=== PATIENT | female | born 1985 | race Caucasian/White ===

== ENCOUNTER 2024-07-30 07:03 | Inpatient (IN) | payer OTHER ==
[~2024-07-30] VITALS: Ht 170.2 cm; Wt 66.6 kg
[2024-07-30 08:44] LABS: BASOPHILS ABSOLUTE AUTO 0.03 K/mm3 (0.00-0.23); BASOPHILS PERCENT AUTO 0 % (0-2); EOSINOPHILS ABSOLUTE AUTO 0.21 K/mm3 (0.00-0.68); EOSINOPHILS PERCENT AUTO 3 % (0-6); Hematocrit 30.3 % (33.0-51.0); Hemoglobin 10.4 g/dL (11.5-16.0); IMMATURE GRAN ABSOLUTE AUTO 0.07 K/mm3 (0.00-0.10); IMMATURE GRAN PERCENT AUTO 1 % (0-1); LYMPHOCYTES ABSOLUTE AUTO 0.68 K/mm3 (0.84-5.20); LYMPHOCYTES PERCENT AUTO 9 % (21-46); MONOCYTES ABSOLUTE AUTO 0.58 K/mm3 (0.16-1.47); MONOCYTES PERCENT AUTO 7 % (4-13); Mean Corpuscular HGB 31.9 pg (26.0-34.0); Mean Corpuscular HGB Conc 34.3 g/dL (31.5-36.5); Mean Corpuscular Volume 93 fL (80-100); Mean Platelet Volume 10.9 fL (9.1-12.4); NEUTROPHILS ABSOLUTE AUTO 6.31 K/mm3 (1.96-9.15); NEUTROPHILS PERCENT AUTO 80 % (41-73); Platelet Count 158 K/mm3 (150-400); RDW Coefficient Variation 12.6 % (11.7-14.2); RDW Standard Deviation 43.5 fL (35.1-46.3); Red Blood Cell Count 3.26 M/mm3 (3.80-5.20); White Blood Cell Count 7.88 K/mm3 (4.00-11.30)
[2024-07-30 09:07] LABS: Albumin, Blood 2.7 g/dL (3.4-5.0); Albumin/Globulin Ratio 0.7 (0.8-1.8); Bilirubin, Total 0.7 mg/dL (0.1-1.0); Bun/Creatinine Ratio 12.5 (12.0-20.0); Creatinine, Blood 0.56 mg/dL (0.40-1.00); Potassium, Blood 4.8 mmol/L (3.5-5.5); Total Protein, Blood 6.7 g/dL (6.4-8.2)
[2024-07-30] MEDS ORDERED: LORazepam 2 MG/ML 1ML Injection IV ONE (12:35)
[2024-07-30] MEDS ORDERED: Morphine Sulfate 4 MG/1 ML Injection IV ONE ×2 (12:35→16:45)
[2024-07-30] MEDS ORDERED: Piperacillin/Tazobactam Sod 3.375 GM in NS 100 ML IV ONE (12:35)
[2024-07-30] MEDS ORDERED: Ondansetron 4 MG TAB PO PRN (13:50)
[2024-07-30] MEDS ORDERED: FLU VACC TS2024-25(6MOS UP)/PF 45 MCG/0.5 ML SYRINGE IM ONE (13:50)
[2024-07-30] MEDS ORDERED: PREG200 PO (15:20)
[2024-07-30] MEDS ORDERED: TRAZ150T57 PO (15:21)
[2024-07-30] MEDS ORDERED: DESVENLAFAXINE50 M3 PO (15:21)
[2024-07-30] MEDS ORDERED: KLONOPIN0.5 M9 PO (15:22)
[2024-07-30] MEDS ORDERED: CYCL10 PO (15:22)
[2024-07-30] MEDS ORDERED: DiphenhydrAMINE HCl 50 MG/ML 1ML Vial IV ONE (16:45)
[2024-07-30] MEDS ORDERED: DESV50 PO (16:57)
[2024-07-30 18:28] VITALS: BP 109/75
[2024-07-30] MEDS ORDERED: NS 250 ML IV PRN (18:45)
[2024-07-30] MEDS ORDERED: Piperacillin/Tazobactam Sod 3.375 GM in NS 100 ML IV SCH (19:00)
[2024-07-30 20:09] VITALS: BP 103/71
[2024-07-30] MEDS ORDERED: FentaNYL Citrate 50 MCG/ML 2 ML Injection IV PRN (21:15)
[2024-07-30] MEDS ORDERED: Pregabalin 50 MG Capsule PO SCH (22:40)
--- NOTE | 2024-07-31 04:28 | NUR ---
SHIFT SUMMARY ADMITTED FOR POST OP INFECTION OF STOMA REVISION. FULL CODE. AWAITING A BED AT [facility], WHO PERFORMED HER RECENT SURGERIES. 07/21/2024 PARASTOMAL HERNIA REPAIR W/STOMA REVISION WAS THE LATEST. MEANWHILE WE ARE GIVING IV ANTIB RX AND PAIN CONTROL RX. SHE IS A&O X4, INDEPENDENT, ON RA. REGULAR DIET. SHE IS WANTING TO RESTART HER HOME MEDS IF POSSIBLE, SO I WILL REPORT THIS REQUEST TO THE DAY RN. I DID GET HER LYRICA ORDERED PER PT REQUEST. PAIN RX GIVEN THIS SHIFT. SHE HAS A HX OF SEVERE ANXIETY.
[2024-07-31 05:43] VITALS: BP 94/61
[2024-07-31 06:10] LABS: BASOPHILS ABSOLUTE AUTO 0.02 K/mm3 (0.00-0.23); BASOPHILS PERCENT AUTO 0 % (0-2); EOSINOPHILS ABSOLUTE AUTO 0.24 K/mm3 (0.00-0.68); EOSINOPHILS PERCENT AUTO 3 % (0-6); Hematocrit 27.8 % (33.0-51.0); Hemoglobin 9.4 g/dL (11.5-16.0); IMMATURE GRAN ABSOLUTE AUTO 0.03 K/mm3 (0.00-0.10); IMMATURE GRAN PERCENT AUTO 0 % (0-1); LYMPHOCYTES ABSOLUTE AUTO 1.01 K/mm3 (0.84-5.20); LYMPHOCYTES PERCENT AUTO 14 % (21-46); MONOCYTES PERCENT AUTO 9 % (4-13); Mean Corpuscular HGB 31.9 pg (26.0-34.0); Mean Corpuscular HGB Conc 33.8 g/dL (31.5-36.5); Mean Corpuscular Volume 94 fL (80-100); Mean Platelet Volume 10.8 fL (9.1-12.4); NEUTROPHILS ABSOLUTE AUTO 5.11 K/mm3 (1.96-9.15); NEUTROPHILS PERCENT AUTO 73 % (41-73); Platelet Count 163 K/mm3 (150-400); RDW Coefficient Variation 12.4 % (11.7-14.2); Red Blood Cell Count 2.95 M/mm3 (3.80-5.20); White Blood Cell Count 7.01 K/mm3 (4.00-11.30)
[2024-07-31 06:56] LABS: Albumin, Blood 2.5 g/dL (3.4-5.0); Albumin/Globulin Ratio 0.7 (0.8-1.8); Bilirubin, Total 0.5 mg/dL (0.1-1.0); Bun/Creatinine Ratio 9.7 (12.0-20.0); Calcium, Blood 8.8 mg/dL (8.5-10.1); Creatinine, Blood 0.62 mg/dL (0.40-1.00); Globulin, Blood 3.4 g/dL (2.2-4.0); Magnesium, Blood 2.4 mg/dL (1.6-2.4); Potassium, Blood 3.9 mmol/L (3.5-5.5); Total Protein, Blood 5.9 g/dL (6.4-8.2)
[2024-07-31 07:27] VITALS: BP 100/70
[2024-07-31] MEDS ORDERED: Enoxaparin 40 MG/0.4 ML SYR SC SCH (09:00)
--- NOTE | 2024-07-31 10:38 | NUR ---
PT INFORMED THIS RN APPROXIMATELY 30 MINS AGO, PT SNEEZE AND IMMEDIATELY FELT A "SHARP, TEARING" SENSATION AROUND OSTOMY SITE. THIS RN ASSESSED OSTOMY AND DID NOT NOTICE ANY WORSENING CONDITION. PT WAS PROVIDED A PILLOW TO USE A BRACE AGAINST ABDOMEN WHILE SNEEZING OR COUGHING, REPORTED FEELING "A BIT BETTER WHEN COUGHING". MD INFORMED AND INSTRUCTED THIS RN TO CONTINUE TO ASSESS THE SITUATION AND INFORM OF ANY WORSENING CONDITION. WILL CONTINUE TO MONITOR.
[2024-07-31] MEDS ORDERED: Ketorolac Tromethamine 30mg Vial IV PRN (10:55)
--- NOTE | 2024-07-31 13:29 | NUR ---
TALKED TO RIAZ AMAYA FROM [facility] OVER PHONE AND GAVE UPDATES ABOUT PT.
[2024-07-31 15:30] VITALS: BP 109/82
--- NOTE | 2024-07-31 15:47 | NUR ---
CALLED TO GIVE REPORT ON RN AT [facility], THEY WILL CALL BACK FOR REPORT.
--- NOTE | 2024-07-31 17:57 | NUR ---
SHIFT SUMMARY PT AOX4, COOPERATIVE, ABLE TO MAKE NEEDS KNOWN. PT NO LONGER GOING TO [facility], WILL BE STAYING AT [facility] FOR IV ABX. AMBULATES IND TO BATHROOM. STILL HAVING TROUBLE WITH ILIOSTOMY LEAKING STOOL. PT EXPRESSES PAIN 7/10 PAIN LEVEL, MEDICATING WITH FENTANYL AND TORADOL IV PER EMAR. TOLERATING PO AND IV MEDICATIONS APPROPRIATELY. BED IN LOWEST POSITION, CALL LIGHT WITHIN REACH.
[2024-07-31 20:21] VITALS: BP 114/83
[2024-07-31] MEDS ORDERED: ClonazePAM 0.5 MG Tab PO SCH (21:00)
--- NOTE | 2024-08-01 04:58 | NUR ---
SHIFT SUMMARY. PATIENT IS A&OX4. PATIENT IS INDEPENDENT IN THE ROOM. PATIENT C/O 7/10 ABDOMINAL PAIN-MEDICATED PER ORDERS WITH TORADOL AND FENTANYL. PATIENT IS PLEASANT AND COOPERATIVE WITH CARE. PLAN IS FOR PATIENT TO CONTINUE ABX AND DISCHARGE IN 1-2 DAYS PER DOCTOR NOTE. BED IS LOCKED IN THE LOWEST POSITION WITH CALL LIGHT IN REACH. CARE IS ONGOING.
[2024-08-01 06:13] VITALS: BP 109/69
[2024-08-01] MEDS ORDERED: OxyCODONE HCL 5 MG TAB PO PRN (07:20)
[2024-08-01 07:27] VITALS: BP 113/84
[2024-08-01] MEDS ORDERED: AMOCLA875 PO (11:39)
[2024-08-01] MEDS ORDERED: OXYC5 PO (11:40)
--- NOTE | 2024-08-01 12:18 | NUR ---
DISCHARGE SUMMARY PT DC THIS SHIFT DC INSTRUCTION GONE OVER WITH PT WHOM STATED UNDERSTANDING. PT GIVEN HARD COPY OF SCRIPT FOR OXYCODONE. PT WAS ESCORTED OUT VIA WHEELCHAIR BY SOCIAL INSURANCE ANALYST TO PRIVATE VEHICLE.
== END 2024-08-01 12:16 | disposition home or self-care (01) | DRG 863 ==
LOC: ER 07:03 → MEDS 13:49 → ERHOLD 13:49 → MEDS 13:49 → ERHOLD 18:21 → MEDS 18:24
PROVIDERS: Student in an Organized Health Care Education/Training Program; ADMIT Internal Medicine
DX: T81.41XA Infection following a procedure, superficial incisional surgical site, initial encounter (principal); F33.1 Major depressive disorder, recurrent, moderate; R18.8 Other ascites; F41.1 Generalized anxiety disorder; K76.0 Fatty (change of) liver, not elsewhere classified; F10.21 Alcohol dependence, in remission; G89.4 Chronic pain syndrome; D73.5 Infarction of spleen; Y83.8 Other surgical procedures as the cause of abnormal reaction of the patient, or of later complication, without mention of misadventure at the time of the procedure; Z93.3 Colostomy status; Z90.49 Acquired absence of other specified parts of digestive tract
CPT/HCPCS: 36415; 74177; 80053; 83735; 85025; 96365-59; 96375; 99284-25; A9270; J1200; J1650; J1885; J2060; J2270; J2543; J3010; J7050; Q9967